=== PATIENT | male | born 1965 | race Caucasian/White ===

== ENCOUNTER → 2016-04-22 | Outpatient (CLI) | payer BC ==
--- NOTE | 2016-04-22 16:09 | XR ---
EXAMINATION TYPE: XR chest 2V DATE OF EXAM: 04/22/2016 4:00 PM COMPARISON: NONE INDICATION: COPD, dizziness TECHNIQUE: Frontal and lateral views of the chest are obtained. FINDINGS: The heart size is normal. The pulmonary vasculature is normal. The lungs are clear. IMPRESSION: 1. No acute pulmonary process.
--- NOTE | 2016-04-22 16:18 | CT ---
EXAMINATION TYPE: CT brain w con DATE OF EXAM: 04/22/2016 4:06 PM COMPARISON: NONE INDICATION: dizziness for 1 week DLP: 1165 mGycm, Automated exposure control for dose reduction was used. CONTRAST: [address] of the brain is performed utilizing 3 mm thick sections through the posterior fossa and 3 mm thick sections through the remaining calvarium. Study is performed within 24 hours of arrival to the hosp [facility]. No abnormal hyperdensity is present to suggest an acute intracranial hemorrhage. No mass lesion is evident. No acute infarcts are evident. Ventricles and sulci are appropriate for the patient age. There is a retention cyst within the left maxillary sinus remaining paranasal sinuses and mastoid air cells are clear. No abnormal enhancement is evident. IMPRESSIONS: 1. Normal postcontrast CT brain.
== END | disposition home or self-care (01) ==
LOC: RADCTMAIN 15:29
PROVIDERS: ATTEND Family Medicine
DX: R42 Dizziness and giddiness (principal); J44.9 Chronic obstructive pulmonary disease, unspecified
CPT/HCPCS: 71020; 70460; Q9967

== ENCOUNTER 2016-04-27 13:47 | Emergency (ER) | payer BC ==
--- NOTE | 2016-04-27 14:28 | ED ---
General Adult HPI - General Chief complaint: Weakness Stated complaint: Left Arm Tingling/Dizzy Time Seen by Provider: 04/27/16 14:00 Source: patient, RN notes reviewed Mode of arrival: ambulatory Limitations: no limitations - History of Present Illness Initial comments: This is a 50-year-old male with a past medical history significant for high blood pressure a smoking history for years he quit 2 weeks ago. Patient comes in today complaining of some dizziness like symptoms she states the room feels like it's moving around in circles per patient states he had one episode of this about a year ago and it had not recurred until about 2 weeks ago. Patient states when it occurred he saw his doctor is . put him on meclizine and had a CAT scan and blood work. Patient states today he had the symptoms again he states that moving his head definitely makes it worse she also is mildly nauseated but never vomited. Patient states today he came to the emergency department because he had some tingling on the medial aspect of his left arm and thigh. Patient states it lasts only a few minutes and went away. Patient states currently has no symptoms whatsoever. Patient denies any recent fever chills or cough. Patient denies any headache. Patient denies any near syncopal episode. Patient denies ever falling. - Related Data Home Medications Medication Instructions Recorded Confirmed Atorvastatin Calcium [Lipitor] 40 mg PO DAILY 04/27/16 04/27/16 Lisinopril [Prinivil] 10 mg PO DAILY 04/27/16 04/27/16 Allergies Allergy/AdvReac Type Severity Reaction Status Date / Time No Known Allergies Allergy Unverified 04/27/16 14:49 Review of Systems ROS Statement: Those systems with pertinent positive or pertinent negative responses have been documented in the HPI. ROS Other: All systems not noted in ROS Statement are negative. Past Medical History Past Medical History: Hyperlipidemia, Hypertension History of Any Multi-Drug Resistant Organisms: None Reported Past Surgical History: No Surgical Hx Reported Past Psychological History: No Psychological Hx Reported Smoking Status: Former smoker Past Alcohol Use History: Rare Past Drug Use History: None Reported General Exam - General Exam Comments Initial Comments: GENERAL: Patient is well-developed and well-nourished. Patient is nontoxic and well- hydrated and is in no acute distress. ENT: Neck is soft and supple. No significant lymphadenopathy is noted. Oropharynx is clear. Moist mucous membranes. Neck has full range of motion without eliciting any pain. EYES: The sclera were anicteric and conjunctiva were pink and moist. Extraocular movements were intact and pupils were equal round and reactive to light. Eyelids were unremarkable. PULMONARY: Unlabored respirations. Good breath sounds bilaterally. No audible rales rhonchi or wheezing was noted. CARDIOVASCULAR: There is a regular rate and rhythm without any murmurs gallops or rubs. ABDOMEN: Soft and nontender with normal bowel sounds. SKIN: Skin is clear with no lesions or rashes and otherwise unremarkable. NEUROLOGIC: Patient is alert and oriented x3. Cranial nerves II through XII are grossly intact. Motor and sensory are also intact. Normal speech, volume and content. Symmetrical smile. Finger to nose testing is normal. MUSCULOSKELETAL: Normal extremities with adequate strength and full range of motion. LYMPHATICS: No significant lymphadenopathy is noted PSYCHIATRIC: Normal psychiatric evaluation. Limitations: no limitations Course Vital Signs 04/27/16 04/27/16 13:55 14:21 Temperature 98.6 F Pulse Rate 73 Pulse Rate [ 78 Apical] Respiratory 18 Rate Blood Pressure 133/81 O2 Sat by Pulse 95 Oximetry Medical Decision Making - Medical Decision Making Patient's EKG shows sinus bradycardia 56 bpm OR interval is 154 QRS is 82 QT interval 426 QTC is 411. Patient's EKG shows no ST segment elevation or depression or T-wave abdomen is noted. All lab work is within normal limits. Chest x-ray shows no acute amount. Patient is asymptomatic during his ED stay. - Lab Data Result diagrams: 04/27/16 14:35 04/27/16 14:35 Lab Results 04/27/16 04/27/16 04/27/16 Range/Units 14:35 14:35 14:35 WBC 9.6 (3.8-10.6) k/uL RBC 4.89 (4.30-5.90) m/uL Hgb 15.2 (13.0-17.5) gm/dL Hct 44.3 (39.0-53.0) % MCV 90.5 (80.0-100.0) fL MCH 31.1 (25.0-35.0) pg MCHC 34.3 (31.0-37.0) g/dL RDW 12.6 (11.5-15.5) % Plt Count 219 (150-450) k/uL Neutrophils % 74 % Lymphocytes % 18 % Monocytes % 5 % Eosinophils % 1 % Basophils % 1 % Neutrophils # 7.2 (1.3-7.7) k/uL Lymphocytes # 1.7 (1.0-4.8) k/uL Monocytes # 0.5 (0-1.0) k/uL Eosinophils # 0.1 (0-0.7) k/uL Basophils # 0.1 (0-0.2) k/uL PT (9.0-12.0) sec INR (<1.1) APTT (22.0-30.0) sec Sodium 142 (137-145) mmol/L Potassium 4.1 (3.5-5.1) mmol/L Chloride 105 (98-107) mmol/L Carbon Dioxide 27 (22-30) mmol/L Anion Gap 10 mmol/L BUN 10 (9-20) mg/dL Creatinine 0.98 (0.66-1.25) mg/dL Est GFR (MDRD) Af Amer >60 (>60 ml/min/1.73 sqM) Est GFR (MDRD) Non-Af >60 (>60 ml/min/1.73 sqM) Glucose 156 H (74-99) mg/dL Calcium 9.3 (8.4-10.2) mg/dL Magnesium 2.0 (1.6-2.3) mg/dL Total Bilirubin 0.6 (0.2-1.3) mg/dL AST 19 (17-59) U/L ALT 40 (21-72) U/L Alkaline Phosphatase 69 (38-126) U/L Total Creatine Kinase 150 (55-170) U/L CK-MB (CK-2) 0.9 (0.0-2.4) ng/mL CK-MB (CK-2) Rel Index 0.6 Troponin I <0.012 (0.000-0.034) ng/mL Total Protein 6.9 (6.3-8.2) g/dL Albumin 4.2 (3.5-5.0) g/dL 04/27/16 Range/Units 14:35 WBC (3.8-10.6) k/uL RBC (4.30-5.90) m/uL Hgb (13.0-17.5) gm/dL Hct (39.0-53.0) % MCV (80.0-100.0) fL MCH (25.0-35.0) pg MCHC (31.0-37.0) g/dL RDW (11.5-15.5) % Plt Count (150-450) k/uL Neutrophils % % Lymphocytes % % Monocytes % % Eosinophils % % Basophils % % Neutrophils # (1.3-7.7) k/uL Lymphocytes # (1.0-4.8) k/uL Monocytes # (0-1.0) k/uL Eosinophils # (0-0.7) k/uL Basophils # (0-0.2) k/uL PT 11.2 (9.0-12.0) sec INR 1.1 (<1.1) APTT 23.3 (22.0-30.0) sec Sodium (137-145) mmol/L Potassium (3.5-5.1) mmol/L Chloride (98-107) mmol/L Carbon Dioxide (22-30) mmol/L Anion Gap mmol/L BUN (9-20) mg/dL Creatinine (0.66-1.25) mg/dL Est GFR (MDRD) Af Amer (>60 ml/min/1.73 sqM) Est GFR (MDRD) Non-Af (>60 ml/min/1.73 sqM) Glucose (74-99) mg/dL Calcium (8.4-10.2) mg/dL Magnesium (1.6-2.3) mg/dL Total Bilirubin (0.2-1.3) mg/dL AST (17-59) U/L ALT (21-72) U/L Alkaline Phosphatase (38-126) U/L Total Creatine Kinase (55-170) U/L CK-MB (CK-2) (0.0-2.4) ng/mL CK-MB (CK-2) Rel Index Troponin I (0.000-0.034) ng/mL Total Protein (6.3-8.2) g/dL Albumin (3.5-5.0) g/dL Disposition Clinical Impression: Vertigo Disposition: HOME SELF-CARE Condition: Good Instructions: Vertigo (ED) Referrals: Sb Carroll MD [Primary Care Provider] - 1-2 days Time of Disposition: 15:44
[2016-04-27 14:51] LABS: Basophils # (A) 0.1 k/uL (0-0.2); Basophils % (A) 1 %; CHCM 35.4; Eosinophils # (A) 0.1 k/uL (0-0.7); Eosinophils % (A) 1 %; HCT 44.3 % (39.0-53.0); HDW 2.41; HGB 15.2 gm/dL (13.0-17.5); Luc # (Auto) 0.13; Luc % (Auto) 1; Lymphocytes # (A) 1.7 k/uL (1.0-4.8); Lymphocytes % (A) 18 %; MCH 31.1 pg (25.0-35.0); MCHC 34.3 g/dL (31.0-37.0); MCV 90.5 fL (80.0-100.0); Mean Platelet Volume 7.2; Monocytes # (A) 0.5 k/uL (0-1.0); Monocytes % (A) 5 %; Neutrophils # (A) 7.2 k/uL (1.3-7.7); Neutrophils % (A) 74 %; RBC 4.89 m/uL (4.30-5.90); RDW 12.6 % (11.5-15.5); WBC 9.6 k/uL (3.8-10.6); WBC (Perox) 9.55
[2016-04-27 14:54] LABS: INR 1.1 (<1.1); Partial Thromboplastin Time 23.3 sec (22.0-30.0); Prothrombin Time 11.2 sec (9.0-12.0)
[2016-04-27 14:56] LABS: ALT 40 U/L (21-72); AST 19 U/L (17-59); Alkaline Phosphatase 69 U/L (38-126); Anion Gap 10 mmol/L; Blood Urea Nitrogen 10 mg/dL (9-20); Calcium 9.3 mg/dL (8.4-10.2); Carbon Dioxide 27 mmol/L (22-30); Chloride 105 mmol/L (98-107); Glucose 156 mg/dL (74-99); Non-African American GFR(MDRD) >60 (>60 ml/min/1.73 sqM); Potassium 4.1 mmol/L (3.5-5.1); Sodium 142 mmol/L (137-145); Total Bilirubin 0.6 mg/dL (0.2-1.3); Total Protein 6.9 g/dL (6.3-8.2)
--- NOTE | 2016-04-27 14:58 | XR ---
EXAMINATION TYPE: XR chest 2V DATE OF EXAM: 04/27/2016 2:53 PM COMPARISON: 04/22/2016 TECHNIQUE: PA and lateral views submitted. HISTORY: Shortness of breath FINDINGS: The lungs are clear and there is no pneumothorax, pleural effusion, or focal pneumonia. Hyperinflati on suggests COPD. Interstitium somewhat coarsened likely in the basis of chronic interstitial lung di sease. Hypertrophic change of the spine noted. IMPRESSION: 1. No acute process. Correlate for COPD and chronic underlying interstitial lung disease or fibrosis.
[2016-04-27 15:06] LABS: Creatine Kinase 150 U/L (55-170)
[2016-04-27 15:20] LABS: Creatine Kinase MB 0.9 ng/mL (0.0-2.4); Troponin I <0.012 ng/mL (0.000-0.034)
[2016-04-27 15:56] VITALS: BP 118/78; PULSE 87; RESP 16; TEMP 97.5
== END 2016-04-27 15:56 | disposition home or self-care (01) ==
LOC: EC 13:47
DX: R42 Dizziness and giddiness (principal); E78.5 Hyperlipidemia, unspecified; I10 Essential (primary) hypertension; Z87.891 Personal history of nicotine dependence; Z79.899 Other long term (current) drug therapy
CPT/HCPCS: 36415; 71020; 80053; 82550; 82553; 83735; 84484; 85025; 85610; 85730; 93005; 99285

== ENCOUNTER → 2016-05-11 | Outpatient (CLI) | payer BC ==
[2016-05-11 11:36] LABS: Glucose 2 Hour 142 mg/dL
== END | disposition home or self-care (01) ==
LOC: LABWHC1 08:19
PROVIDERS: ATTEND Otolaryngology
DX: E16.2 Hypoglycemia, unspecified (principal)
CPT/HCPCS: 36415; 82947; 82950

== ENCOUNTER → 2016-05-14 | Outpatient (CLI) | payer BC ==
--- NOTE | 2016-05-14 13:35 | US ---
EXAMINATION TYPE: US venous doppler duplex LE BI DATE OF EXAM: 05/14/2016 1:21 PM COMPARISON: No previous CLINICAL HISTORY: TIA G45.8, PAIN LOWER LIMB M79.659. Intermittent bilateral medial thigh pain, cramp ing SIDE PERFORMED: Bilateral VESSELS IMAGED: External Iliac Vein (EIV) Common Femoral Vein Deep Femoral Vein Greater Saphenous Vein * Femoral Vein Popliteal Vein Small Saphenous Vein * Proximal Calf Veins (* superficial vessels) IMPRESSION: Right Leg: Appears negative for DVT Left Leg: Appears negative for DVT
--- NOTE | 2016-05-14 13:36 | US ---
EXAMINATION TYPE: US carotid duplex BILAT DATE OF EXAM: 05/14/2016 1:01 PM COMPARISON: No previous CLINICAL HISTORY: TIA G45.8, PAIN IN LOWER LIMB M79.659. Cold, numbness, occasional chest pain EXAM MEASUREMENTS: RIGHT: Peak Systolic Velocity (PSV) cm/sec ----- Right CCA: 120.5 ----- Right ICA: 109.2 ----- Right ECA: 87.5 ICA/CCA ratio: 0.9 RIGHT: End Diastole cm/sec ----- Right CCA: 30.0 ----- Right ICA: 36.5 ----- Right ECA: 15.3 LEFT: Peak Systolic Velocity (PSV) cm/sec ----- Left CCA: 135.0 ----- Left ICA: 87.9 ----- Left ECA: 87.9 ICA/CCA ratio: 0.7 LEFT: End Diastole cm/sec ----- Left CCA: 36.5 ----- Left ICA: 39.5 ----- Left ECA: 14.3 VERTEBRALS (direction of flow): Right Vertebral: Antegrade Left Vertebral: Antegrade IMPRESSION: Bilateral intimal thickening, elevated velocities: left proximal CCA, left distal CCA, no significant stenosis Criteria for Assigning % of Stenosis / Diameter reduction (Estimation based on the indirect measurements of the internal carotid artery velocities (ICA PSV). 1. Normal (no stenosis)=ICA PSV < 125 cm/s: ratio < 2.0: ICA EDV<40 cm/s. 2. Less than 50% stenosis=ICA PSV < 125 cm/s: ratio < 2.0: ICA EDV<40 cm/s. 3. 50 to 69% stenosis=ICA PSV of 125 to 230 cm/s: ration 2.0 ? 4.0: ICA EDV 40-100 cm/s. 4. Greater than 70% stenosis to near occlusion= ICA PSV > 230 cm/s: ratio > 4.0: ICA EDV > 100 cm/s. 5. Near occlusion= ICA PSV velocities may be low or undetectable: variable ratio and ICA EDV. 6. Total occlusion=unable to detect flow.
== END | disposition home or self-care (01) ==
LOC: RADUSWWP 12:33
PROVIDERS: ATTEND Family Medicine
DX: I77.89 Other specified disorders of arteries and arterioles (principal); M79.652 Pain in left thigh; M79.651 Pain in right thigh
CPT/HCPCS: 93880; 93970

== ENCOUNTER 2016-06-14 08:05 | Day surgery (SDC) | payer BC ==
[2016-06-09 15:26] VITALS: BMI 27.8
[~2016-06-14 08:05] MED LIST: SODIUM CHLORIDE 0.9% 1,000 ML IV SCH
[2016-06-14 08:17] VITALS: BP 142/83; PULSE 68; RESP 16; TEMP 98.5
--- NOTE | 2016-06-14 12:27 | P.PCN ---
Preoperative Diagnosis: Twelve-lead ECG report Sinus mechanism heart rate 66 beats a minute narrow QRS normal ST segments no epsilon waves no delta waves normal QT interval no arrhythmias Tilt table test report Baseline blood pressure 136/75 mmHg Baseline heart rate 64 beats a minute Patient was tilted upright at night was 70 per protocol. There was no change in his heart rate and blood pressure and he remained asymptomatic. Impression Normal heart rate and blood pressure response to upright tilting Postoperative Diagnosis: Twelve-lead ECG report Sinus mechanism heart rate 66 beats a minute narrow QRS normal ST segments no epsilon waves no delta waves normal QT interval no arrhythmias Tilt table test report Baseline blood pressure 136/75 mmHg Baseline heart rate 64 beats a minute Patient was tilted upright at night was 70 per protocol. There was no change in his heart rate and blood pressure and he remained asymptomatic. Impression Normal heart rate and blood pressure response to upright tilting Disposition: same day
== END 2016-06-14 09:45 | disposition home or self-care (01) ==
LOC: CATHEP 08:05
PROVIDERS: ATTEND Internal Medicine Clinical Cardiac Electrophysiology
DX: R42 Dizziness and giddiness (principal); F17.210 Nicotine dependence, cigarettes, uncomplicated; I10 Essential (primary) hypertension; E78.5 Hyperlipidemia, unspecified; Z79.899 Other long term (current) drug therapy; Z82.49 Family history of ischemic heart disease and other diseases of the circulatory system
CPT/HCPCS: 93005; 93660

== ENCOUNTER → 2016-06-16 | Outpatient (CLI) | payer BC ==
--- NOTE | 2016-06-16 16:00 | XR ---
EXAMINATION TYPE: XR cervical spine limited DATE OF EXAM: 06/16/2016 3:52 PM COMPARISON: NONE HISTORY: Cervical spondylosis, neck pain TECHNIQUE: 3 view cervical spine FINDINGS: Prevertebral space is normal. Disc heights are preserved. Vertebral body heights are preser enil. Posterior spinal lamellar line is intact. Odontoid is limited. IMPRESSION: 1. Normal three-view cervical spine
== END | disposition home or self-care (01) ==
LOC: RADXRMAIN 15:27
PROVIDERS: ATTEND Internal Medicine Clinical Cardiac Electrophysiology
DX: M47.812 Spondylosis without myelopathy or radiculopathy, cervical region (principal)
CPT/HCPCS: 72040

== ENCOUNTER → 2016-07-07 | Outpatient (CLI) | payer BC ==
--- NOTE | 2016-07-08 11:14 | CT ---
EXAMINATION TYPE: CT ChestAbdPelvis w con DATE OF EXAM: 07/07/2016 7:56 PM INDICATION: Unintentional 45 lb weight loss over 2 1/2 months. COMPARISON: NONE CT DLP: 2137.00 mGycm CONTRAST: Performed with Oral Contrast and with IV Contrast, patient injected with 100 mL of Omnipaque 300. TECHNIQUE: Axial images at 5 mm thick sections. Reconstructed images in the coronal plane. Delayed images through the kidneys. FINDINGS: CT CHEST: Portion of the thyroid visualized is normal. No suspicious lung nodules or focal infiltrates are present. No enlarged mediastinal or hilar adenopathy is evident. There is a small superior mediastinal lymph n ode measuring 0.8 cm. The ascending aorta diameter at the level of the main pulmonary artery is 3.6 cm. The main pulmonary artery diameter at the bifurcation is 2.[address] ABDOMEN: Liver: Normal Spleen: Normal Pancreas: Normal, a subtle mass is not identified. Adrenal glands: The adrenal glands are normal. Gallbladder: Tiny calcification appears to be within the gallbladder fundus wall. Cholelithiasis is n ot identified. No pericholecystic fluid is evident. Kidneys: No masses are evident. No hydronephrosis is present. No cysts are present. Delayed images were obtained through the kidneys, which remain unremarkable. Aorta: Normal Inferior vena cava: Normal. CT PELVIS: Loops of bowel within the abdomen and pelvis are normal. There are loops of bowel which are incom pletely distended or lack oral contrast limiting their evaluation. Diverticular changes are within th e sigmoid colon without evidence of acute diverticulitis. Appendix: Normal as visualized and is air-filled. Urinary bladder: Normal. Genitourinary structures: There is a prominent prostate and seminal vesicles. Follow-up is recommende d. Osseous structures: No suspicious lytic or sclerotic lesions. IMPRESSIONS: 1. Diverticulosis without acute diverticulitis. 2. Minimal wall calcification gallbladder. 3. No suspicious changes
== END ==
LOC: RADCTMAIN 19:20
PROVIDERS: ATTEND Family Medicine
DX: K57.90 Diverticulosis of intestine, part unspecified, without perforation or abscess without bleeding (principal); K82.8 Other specified diseases of gallbladder
CPT/HCPCS: 71260; 74177; Q9967

== ENCOUNTER 2016-07-13 09:50 | Day surgery (SDC) | payer BC ==
[2016-07-12 08:30] VITALS: BMI 27.1
[~2016-07-13 09:50] MED LIST changes: +DEXAMETHASONE SOD PHOSPHATE 10 MG/ML 1 ML VIAL IV ONE; +HYDROmorphone 1 MG/ML 1 ML SYRINGE IVP PRN; +LACTATED RINGERS 1,000 ML IV SCH; +LIDOCAINE 1% 20 ML VIAL (10MG/ML) FOR IV START INTRADERMA PRN; +MIDAZOLAM 2 MG/2 ML VIAL IV PRN; +ONDANSETRON 4 MG/2 ML VIAL IVP ONE; +SCOPOLAMINE 1.5MG/72HR PATCH TRANSDERM ONE; -SODIUM CHLORIDE 0.9% 1,000 ML IV SCH
[2016-07-13 10:11] VITALS: TEMP 97.5
[2016-07-13] MEDS ORDERED: PROPOFOL 10 MG/ML 20 ML VIAL IV ONE (10:56)
--- NOTE | 2016-07-13 11:40 | P.PCN ---
Date of Procedure: 07/13/16 Procedure(s) Performed: Procedures: 1. Esophagogastroduodenoscopy and biopsy. 2. Total colonoscopy. Preoperative diagnosis: Dyspepsia and unexplained weight loss. Postoperative diagnosis: 1. Small sliding hiatal hernia with no obvious esophagitis or complicated reflux disease. 2. Mild gastritis and duodenitis. 3. Diffuse diverticulosis with no evidence of acute diverticulitis, strictures , polyps or cancer. Preparation: HalfLytely prep. Sedation: Was provided by anesthesia. Brief clinical history: The patient is a 51-year-old male who is referred for this evaluation because of dyspepsia and fullness sensation and unexplained weight loss of around 25 pounds. He denies dysphagia or other alarm symptoms. His blood workup and imaging studies has been not revealing. This evaluation is requested to rule out peptic ulcer disease or neoplasia. Procedure: With the patient on her left lateral decubitus position and after informed consent and adequate sedation, I passed the Olympus-GIF 160 video upper endoscope through the cricopharyngeus down the esophagus. GE junction was around 40 cm from the incisors and there was a small sliding hiatal hernia. The esophagus did not show any obvious erosions, ulcers, strictures or Pham 's esophagus. The endoscope was then passed into the stomach which was insufflated with air and inspected in detail including the retroflex view in the cardia. There was some minimal mottling and erythema in the antrum but no ulcers or erosions. Pyloric channel, duodenal bulb, post bulbar area and descending duodenum showed minimal erythema. I obtained biopsies from the duodenum, antrum and esophagus then the endoscope was withdrawn and I proceeded with the colonoscopy. Perianal area did not show any fissures or fistulas. There were no masses felt on digital rectal examination. The Olympus CFQ 160L video colonoscope was then inserted in the rectum in the usual fashion and advanced to the cecum. There was diffuse diverticulosis noted with no evidence of acute diverticulitis or strictures. The mucosa appeared healthy. No polyps or tumors were seen or any significant pathology. I retroflexed the endoscope in the rectum before the endoscope was withdrawn. The patient tolerated the procedure well. Plan: The patient was reassured. Discussed dietary measures. He will follow up with you as planned and further plans will be made based on his course. Would be happy to see in the future if his symptoms persist.
[2016-07-13 12:01] VITALS: BP 111/76; PULSE 68; RESP 18
== END 2016-07-13 12:13 | disposition home or self-care (01) ==
LOC: ORWHC2ENDO 09:50
DX: K29.50 Unspecified chronic gastritis without bleeding (principal); K20.9 Esophagitis, unspecified; K44.9 Diaphragmatic hernia without obstruction or gangrene; K57.30 Diverticulosis of large intestine without perforation or abscess without bleeding; R63.4 Abnormal weight loss; I10 Essential (primary) hypertension; E78.5 Hyperlipidemia, unspecified; Z79.899 Other long term (current) drug therapy
CPT/HCPCS: 88305; 88342; 45378; 43239; J2704; 80053; 83655; 84153; 85025

== ENCOUNTER → 2016-08-02 | Outpatient (CLI) | payer BC ==
--- NOTE | 2016-08-02 08:02 | US ---
EXAMINATION TYPE: US gallbladder DATE OF EXAM: 08/02/2016 7:20 AM COMPARISON: Previous CT scan of the chest, abdomen and pelvis dated 07/07/2016. CLINICAL HISTORY: K80.80 Other cholelithiasis without obstruction. Follow up from recent CT EXAM MEASUREMENTS: Liver Length: 16.7 cm Gallbladder Wall: 0.2 cm CBD: 0.3 cm Right Kidney: 9.8 x 5.6 x 4.6 cm Pancreas: visualized portions wnl, head and tail obscured by overlying midline bowel gas Liver: visualized portions wnl, scanned intercostally, limited by rib shadowing Gallbladder: multiple hyperechoic non shadowing foci along wall with largest measuring 0.3cm, possib le polyps Evidence for sonographic Gann's sign: no CBD: visualized portions wnl, limited by overlying bowel gas Right Kidney: no hydronephrosis or masses seen Limited views of the pancreas are unremarkable. The liver is normal in size without evidence of biliary dilatation. There are questionable polyps within the gallbladder. The calcifications seen on CT is not visualized on this examination. No gallstones are seen. The gallbladder wall measures 2 mm. The distal common h epatic duct measures 3 mm. The right kidney is unremarkable. IMPRESSION: 1. GALLBLADDER POLYPS. 2. QUESTIONABLE CALCIFICATION WITHIN THE WALL OF THE GALLBLADDER IS NOT VISUALIZED ON THIS EXAMVERA Elmore
== END | disposition home or self-care (01) ==
LOC: RADUSWWP 06:56
PROVIDERS: ATTEND Family Medicine
DX: K82.4 Cholesterolosis of gallbladder (principal)
CPT/HCPCS: 76705

== ENCOUNTER 2016-10-05 09:44 | Day surgery (SDC) | payer BC ==
[2016-09-01 08:02] VITALS: BMI 26.4
[~2016-10-05 09:44] MED LIST changes: +FAMOTIDINE 20 MG/2 ML VIAL IV PRN; +HEPARIN SODIUM,PORCINE 5,000 UNIT/ML 1 ML VIAL SQ ONE; -MIDAZOLAM 2 MG/2 ML VIAL IV PRN; -ONDANSETRON 4 MG/2 ML VIAL IVP ONE; +ceFAZolin 2 GM in SODIUM CHLORIDE 0.9% 100 ML IVPB ONE
[2016-10-05 10:34] VITALS: BP 138/86; PULSE 56; RESP 16; TEMP 97.8
== END 2016-10-05 13:50 | disposition home or self-care (01) ==
LOC: OR 09:44
PROVIDERS: ATTEND Surgery
DX: R10.11 Right upper quadrant pain (principal); Z53.9 Procedure and treatment not carried out, unspecified reason; I10 Essential (primary) hypertension; F17.200 Nicotine dependence, unspecified, uncomplicated; Z79.899 Other long term (current) drug therapy

== ENCOUNTER → 2016-12-15 | Outpatient (CLI) | payer BC ==
--- NOTE | 2016-12-15 16:01 | NM ---
EXAMINATION TYPE: NM hepatobiliary w EF DATE OF EXAM: 12/15/2016 COMPARISON: Ultrasound 08/02/2016 HISTORY: 51-year-old male with generalized abdominal pain TECHNIQUE: After the intravenous administration of 5.4 mCi Tc 99m Mebrofenin hepatobiliary scintigrap hy is performed. Immediate images post injection. FINDINGS: There is satisfactory initial accumulation of tracer by the liver. The gallbladder is visualized wit hin 8 minutes. The small bowel activity is noted within 44 minutes. At one hour 8 ounces of oral en sure plus is given to mimic CCK and gallbladder ejection fraction is calculated at 65 %, in the giselle l range. Therefore there is no scintigraphic evidence of cystic or common bile duct obstruction to s uggest acute cholecystitis or gallbladder dyskinesia. IMPRESSION: No evidence for acute/chronic cholecystitis or biliary dyskinesia. GB EF of 65%.
== END | disposition home or self-care (01) ==
LOC: RADNMMAIN 13:03
PROVIDERS: ATTEND Surgery
DX: R10.84 Generalized abdominal pain (principal)
CPT/HCPCS: 78226; A9537